=== PATIENT | female | born 1985 | race Two or more races ===

== ENCOUNTER 2020-01-18 07:34 | Emergency (ER) | payer OTHER ==
[~2020-01-18] VITALS: Ht 165.1 cm; Wt 74.8 kg
[~2020-01-18 07:34] MED LIST: ACIDOPHILUS CA1 EAC1 PO; AMOX1TAB12 PO; CIPRO500 MG PO; PYRIDIUM200 MG PO; VASOTEC20 M1
== END 2020-01-18 12:31 | disposition home or self-care (01) ==
LOC: ER 07:34
DX: N93.8 Other specified abnormal uterine and vaginal bleeding (principal)